=== PATIENT | male | born 1965 | race Caucasian/White ===

== ENCOUNTER 2016-02-29 09:26 | Emergency (ER) | payer BC ==
[~2016-02-29] VITALS: Ht 175.3 cm; Wt 86.2 kg
[~2016-02-29 09:26] MED LIST: IBU100LQ GT; METH-171 PO; NOR10T PO
[2016-02-29] MEDS ORDERED: HYDROmorphone HCL 2 MG/ML VL IM ONE (11:30)
[2016-02-29] MEDS ORDERED: METHOCARBAMOL 500 MG TAB PO ONE (11:30)
[2016-02-29] MEDS ORDERED: ONDANSETRON HCL 4 MG/2 ML VIAL IM ONE (11:30)
[2016-02-29 12:25] VITALS: BP 128/82
== END 2016-02-29 12:35 | disposition home or self-care (01) ==
LOC: ER 09:27
DX: M54.5 Low back pain (principal); M54.2 Cervicalgia; G89.29 Other chronic pain; Z88.0 Allergy status to penicillin
CPT/HCPCS: 96372; 99284; J1170; J2405

== ENCOUNTER → 2017-04-19 | Outpatient (CLI) | payer BC ==
[~2017-04-19] MED LIST changes: +CELE100C82 PO; +FLUT1SPR5; -IBU100LQ GT; +IBU600T PO; +IBUP100S11 GT; -METH-171 PO; +METH-532 PO; +RANO1000 PO
[2017-04-19 08:45] VITALS: BP 143/83
[2017-04-19 09:04] VITALS: BP 136/79
[2017-04-19 12:19] LABS: INR 0.93 (0.9-1.15); Partial Thromboplastin Time 26.6 sec (22.64-33.71); Prothrombin Time 10.1 sec (9.37-12.3)
[2017-04-19 12:24] LABS: Basophils # (auto) 0 uL; Basophils % (auto) 0.7 % (0.0-2.0); Eosinophils # (auto) 0.2 uL; Eosinophils % (auto) 2.8 % (0.0-7.0); Hematocrit 48.5 % (41.0-53.0); Hemoglobin 16.4 g/dL (13.5-17.5); Lymphocytes # (auto) 2.3 uL; Lymphocytes % (auto) 33.4 % (10.0-50.0); Mean Corpuscular Hgb Conc. 33.8 g/dL (32.0-36.0); Mean Corpuscular Volume 94.9 fL (80.0-100.0); Monocytes # (auto) 0.5 uL; Monocytes % (auto) 6.9 % (0.0-12.0); Neutrophils # (auto) 3.9 uL; Neutrophils % (auto) 56.2 % (37.0-80.0); Nucleated Red Blood Cells % 0.5 %; Platelet Count (auto) 282 10^3/uL (140-450); Red Blood Cells 5.11 10^6/uL (4.5-5.90); Red Cell Distribution Width 12.8 % (11.8-14.3)
[2017-04-19 12:29] LABS: BUN/Creatinine Ratio 23.9; Calcium 9.1 mg/dL (8.5-10.1); Potassium 4.1 mmol/L (3.5-5.1)
== END | disposition home or self-care (01) ==
LOC: Rad HDHVI 08:31
PROVIDERS: ATTEND Internal Medicine Cardiovascular Disease
DX: Z01.818 Encounter for other preprocedural examination (principal); I10 Essential (primary) hypertension; D64.9 Anemia, unspecified; R79.1 Abnormal coagulation profile
CPT/HCPCS: 36415; 71046; 80048; 85025; 85610; 85730; 93005; G0463

== ENCOUNTER → 2017-04-21 | Day surgery (SDC) | payer BC ==
[~2017-04-21] VITALS: Ht 175.3 cm; Wt 86.0 kg
[~2017-04-21] MED LIST changes: +ANGIOMAX 250 MG VIAL IV ONE; +IOHEXOL 350 MG/ML 100ML IJ ONE; +LIDOCAINE 2%HCL (LOCAL ANESTH.) INJ 20ML MDV ONE; +MIDAZOLAM HCL 1MG/1ML-2 ML VIAL ONE; +SODIUM CHL 0.9% 50 ML ONE; +fentaNYL CITRATE 100 MCG/2 ML VL ONE
== END | disposition home or self-care (01) ==
LOC: CATH 10:08
PROVIDERS: ATTEND Internal Medicine Cardiovascular Disease
DX: R07.9 Chest pain, unspecified (principal); Z88.0 Allergy status to penicillin; E66.9 Obesity, unspecified; F10.99 Alcohol use, unspecified with unspecified alcohol-induced disorder; F17.210 Nicotine dependence, cigarettes, uncomplicated
CPT/HCPCS: 93458; C1760; C1894; J1644; J2250; J3010; J7030; Q9967; 99152; 99153

== ENCOUNTER → 2018-07-25 | Outpatient (CLI) | payer BC ==
[~2018-07-25] MED LIST changes: -ANGIOMAX 250 MG VIAL IV ONE; -IBUP100S11 GT; -IOHEXOL 350 MG/ML 100ML IJ ONE; -LIDOCAINE 2%HCL (LOCAL ANESTH.) INJ 20ML MDV ONE; -METH-532 PO; -MIDAZOLAM HCL 1MG/1ML-2 ML VIAL ONE; -SODIUM CHL 0.9% 50 ML ONE; -fentaNYL CITRATE 100 MCG/2 ML VL ONE
[2018-07-25 12:14] LABS: Albumin 4.3 g/dL (3.4-5.0); Calcium 9.3 mg/dL (8.5-10.1); Potassium 4.2 mmol/L (3.5-5.1)
[2018-07-25 12:15] LABS: Basophils # (auto) 0 uL; Basophils % (auto) 0.6 % (0.0-2.0); Eosinophils # (auto) 0.1 uL; Eosinophils % (auto) 0.9 % (0.0-7.0); Hematocrit 49.6 % (41.0-53.0); Lymphocytes # (auto) 1.7 uL; Lymphocytes % (auto) 25.2 % (10.0-50.0); Mean Corpuscular Hgb Conc. 34.2 g/dL (32.0-36.0); Mean Corpuscular Volume 93.7 fL (80.0-100.0); Monocytes # (auto) 0.6 uL; Neutrophils # (auto) 4.5 uL; Neutrophils % (auto) 65.3 % (37.0-80.0); Nucleated Red Blood Cells % 0.1 %; Platelet Count (auto) 280 10^3/uL (140-450); White Blood Cell 6.9 10^3/uL (4.4-10.8)
[2018-07-25 12:18] LABS: Urine Blood Negative /uL (Negative); Urine Specific Gravity 1.014 (1.001-1.035)
[2018-07-25 12:20] LABS: Bilirubin, Total 0.6 mg/dL (0.2-1.0); CRP High Sensitivity 0.4 mg/dL (< 0.3); Total Protein 7.9 g/dL (6.4-8.2)
[2018-07-25 12:26] LABS: Prostate Specific Antigen 1.47 ng/mL (0.0-4.0)
== END | disposition home or self-care (01) ==
LOC: LAB 08:11
PROVIDERS: ATTEND Internal Medicine Cardiovascular Disease
DX: Z00.00 Encounter for general adult medical examination without abnormal findings (principal); M32.10 Systemic lupus erythematosus, organ or system involvement unspecified; R70.0 Elevated erythrocyte sedimentation rate; R79.82 Elevated C-reactive protein (CRP); E03.9 Hypothyroidism, unspecified; E55.9 Vitamin D deficiency, unspecified; C61 Malignant neoplasm of prostate; E29.1 Testicular hypofunction; D51.9 Vitamin B12 deficiency anemia, unspecified; N39.0 Urinary tract infection, site not specified; Z79.899 Other long term (current) drug therapy
CPT/HCPCS: 36415; 80053; 80061; 81003; 82306; 82607; 83036; 84153; 84403; 84439; 84443; 85025; 85652; 86141; 86225; 86235

== ENCOUNTER → 2018-07-31 | Outpatient (CLI) | payer BC ==
[~2018-07-31] MED LIST changes: +IOHEXOL 350 MG/ML 100ML IJ ONE
[2018-07-31 09:58] VITALS: BP 158/85
[2018-07-31 10:19] VITALS: BP 158/83
--- NOTE | 2018-07-31 10:19 | NUR ---
CT CHEST WITH CONTRAST. IV insertion IV access obtained, via clean sterile technique by inserting 22 gauge catheter at after attempt(s)BY RUTHIE YBARRA. IV secured properly. No trauma to site. Patient tolerated procedure well. COMPLETED CT SCAN AND TOLERATED WELL. IV DCD POST CT AND SITE BENIGN. DISCHARGED TO SELF CARE IN NO DISTRESS OR DISCOMFORT.
== END | disposition home or self-care (01) ==
LOC: Rad HDHVI 08:29
PROVIDERS: ATTEND Internal Medicine Cardiovascular Disease
DX: J44.9 Chronic obstructive pulmonary disease, unspecified (principal); R94.4 Abnormal results of kidney function studies
CPT/HCPCS: 36415; 71260; 82565; G0463; Q9967

== ENCOUNTER → 2018-08-30 | Outpatient (CLI) | payer BC ==
[~2018-08-30] VITALS: Ht 175.3 cm; Wt 86.2 kg
[~2018-08-30] MED LIST changes: -IOHEXOL 350 MG/ML 100ML IJ ONE
== END | disposition home or self-care (01) ==
LOC: Rad HDHVI 07:56
PROVIDERS: ATTEND Internal Medicine Cardiovascular Disease
DX: J44.9 Chronic obstructive pulmonary disease, unspecified (principal); M32.9 Systemic lupus erythematosus, unspecified; R07.89 Other chest pain; R06.02 Shortness of breath; F17.200 Nicotine dependence, unspecified, uncomplicated
CPT/HCPCS: 78452; 93017; 93306; 96374; A9500

== ENCOUNTER 2020-04-15 12:31 | Inpatient (IN) | payer BC ==
[~2020-04-15] VITALS: Ht 175.3 cm; Wt 86.0 kg
[~2020-04-15 12:31] MED LIST changes: -IBU600T PO; +IBUP600T28 PO
[2020-04-15] MEDS ORDERED: MORPHINE SULFATE 4 MG/ML SYR/VIAL IV ONE (12:45)
[2020-04-15] MEDS ORDERED: ONDANSETRON HCL 4 MG/2 ML VIAL IV ONE (12:45)
[2020-04-15 13:30] LABS: Basophils # (auto) 0 10 ^3/uL (0-0.2); Basophils % (auto) 0.6 % (0.0-2.0); Eosinophils # (auto) 0.1 10 ^3/uL (0-0.8); Eosinophils % (auto) 1.3 % (0.0-7.0); Hematocrit 45.2 % (41.0-53.0); Hemoglobin 15.9 g/dL (13.5-17.5); Lymphocytes # (auto) 2.1 10 ^3/uL (0.4-5.4); Lymphocytes % (auto) 27.9 % (10.0-50.0); Mean Corpuscular Hemoglobin 32.9 pg (28.0-32.0); Mean Corpuscular Hgb Conc. 35.1 g/dL (32.0-36.0); Mean Corpuscular Volume 93.7 fL (80.0-100.0); Monocytes # (auto) 0.6 10 ^3/uL (0-1.3); Monocytes % (auto) 7.4 % (0.0-12.0); Neutrophils # (auto) 4.8 10 ^3/uL (1.6-8.6); Neutrophils % (auto) 62.8 % (37.0-80.0); Red Blood Cells 4.82 10^6/uL (4.5-5.90); Red Cell Distribution Width 12.7 % (11.8-14.3); White Blood Cell 7.6 10^3/uL (4.4-10.8)
[2020-04-15 13:46] LABS: INR 0.92 (0.9-1.15); Partial Thromboplastin Time 24.2 sec (23.0-31.2)
[2020-04-15 13:48] LABS: Anion Gap 4 (5-15); Blood Urea Nitrogen 18 mg/dL (7-18); Calcium 8.7 mg/dL (8.5-10.1); Carbon Dioxide 27 mmol/L (21-32); Chloride 108 mmol/L (98-107); Glucose 112 mg/dL (74-106); Magnesium 2.4 mg/dL (1.6-2.6); Potassium 4.2 mmol/L (3.5-5.1); Sodium 139 mmol/L (136-145)
[2020-04-15 13:52] LABS: Alanine Aminotransferase 36 U/L (16-61); Alkaline Phosphatase 55 U/L (45-117); Aspartate Aminotransferase 18 U/L (15-37); BUN/Creatinine Ratio 17.8; Bilirubin, Total 0.4 mg/dL (0.2-1.0); GFR African American 98 mL/min; GFR Non-African American 81 mL/min; Total Protein 7.6 g/dL (6.4-8.2)
[2020-04-15] MEDS ORDERED: NITROGLYCERIN 0.4 MG SL TAB SL PRN (16:00)
[2020-04-15] MEDS ORDERED: CLOPIDOGREL 300 MG TAB PO ONE (16:00)
[2020-04-15] MEDS ORDERED: CLOPIDOGREL 300 MG TAB ONE (16:03)
[2020-04-15] MEDS: SODIUM CHLORIDE 0.9% 1,000 ML IV SCH (16:14)
[2020-04-15] MEDS: HYDROcodone-ACET 7.5/325MG TAB PO PRN (17:48)
[2020-04-15] MEDS: MORPHINE SULFATE INJECTION 2 MG/ML SYRG IV PRN (19:36)
[2020-04-15 23:00] VITALS: BP_SYST 124; BP_SYST 125; BP_DIAS 74; BP_DIAS 75
[2020-04-16] MEDS: SODIUM CHLORIDE 0.9% 1,000 ML IV SCH (04:50)
[2020-04-16 05:35] VITALS: BP 123/74
[2020-04-16] MEDS: MORPHINE SULFATE INJECTION 2 MG/ML SYRG IV PRN (05:51)
[2020-04-16] MEDS: HYDROcodone-ACET 7.5/325MG TAB PO PRN ×2 (08:16→16:29)
[2020-04-16 09:05] VITALS: BP 128/77
[2020-04-16] MEDS ORDERED: CLOPIDOGREL BISULFATE 75 MG TAB PO SCH (10:00)
[2020-04-16] MEDS ORDERED: ANGIOMAX 250 MG VIAL IV ONE (12:45)
[2020-04-16] MEDS ORDERED: fentaNYL CITRATE 100 MCG/2 ML VL ONE ×2 (12:46→14:01)
[2020-04-16] MEDS ORDERED: MIDAZOLAM HCL 2MG/2ML 2ml VIAL (1mg/ml) ONE (12:46)
[2020-04-16] MEDS ORDERED: SODIUM CHL 0.9% 50 ML ONE (12:46)
[2020-04-16] MEDS ORDERED: LIDOCAINE 2%HCL (LOCAL ANESTH.) INJ 20ML MDV ONE (12:47)
[2020-04-16 13:00] VITALS: BP 144/84
[2020-04-16] MEDS ORDERED: IOHEXOL 350 MG/ML 100ML IJ ONE (14:11)
[2020-04-16] MEDS ORDERED: CLOPIDOGREL BISULFATE 75 MG TAB ONE (14:24)
[2020-04-16] MEDS ORDERED: ASPirin 81 mg TAB ONE (14:24)
[2020-04-16 17:09] VITALS: BP 128/85
[2020-04-16 17:16] VITALS: BP 128/85
[2020-04-17] MEDS ORDERED: CLOPIDOGREL BISULFATE 75 MG TAB PO SCH (10:00)
== END 2020-04-16 17:41 | disposition home or self-care (01) | DRG 247 ==
LOC: ER 12:31 → TELE 12:32 → TELE-WESTW 22:15
PROVIDERS: ADMIT Internal Medicine Cardiovascular Disease; ATTEND Internal Medicine Cardiovascular Disease
PROC: 027034Z Dilation of Coronary Artery, One Artery with Drug-eluting Intraluminal Device, Percutaneous Approach (ICD-10-PCS; principal; 2020-04-16)
PROC: B2111ZZ Fluoroscopy of Multiple Coronary Arteries using Low Osmolar Contrast (ICD-10-PCS; 2020-04-16)
PROC: B2151ZZ Fluoroscopy of Left Heart using Low Osmolar Contrast (ICD-10-PCS; 2020-04-16)
PROC: 4A023N7 Measurement of Cardiac Sampling and Pressure, Left Heart, Percutaneous Approach (ICD-10-PCS; 2020-04-16)
DX: I21.4 Non-ST elevation (NSTEMI) myocardial infarction (principal); I25.110 Atherosclerotic heart disease of native coronary artery with unstable angina pectoris; Z79.02 Long term (current) use of antithrombotics/antiplatelets; Z82.3 Family history of stroke; M47.896 Other spondylosis, lumbar region; F17.210 Nicotine dependence, cigarettes, uncomplicated; I10 Essential (primary) hypertension; Z20.822 Contact with and (suspected) exposure to COVID-19; Z88.0 Allergy status to penicillin; Z79.899 Other long term (current) drug therapy
CPT/HCPCS: 36415; 71045; 80053; 83735; 84484; 85025; 85610; 85730; 87426; 92928; 93005; 93458; 96361; 96374; 96375; 99152; 99153; C1874; G0378; J2250; J2405

== ENCOUNTER → 2020-05-15 | Outpatient (CLI) | payer BC ==
[~2020-05-15] VITALS: Ht 175.3 cm; Wt 86.2 kg
[~2020-05-15] MED LIST changes: +ADENOSINE 90 MG/30 ML INJ IV ONE
== END | disposition home or self-care (01) ==
LOC: Rad HDHVI 08:10
PROVIDERS: ATTEND Internal Medicine Cardiovascular Disease
DX: J44.9 Chronic obstructive pulmonary disease, unspecified (principal); I25.10 Atherosclerotic heart disease of native coronary artery without angina pectoris; R06.02 Shortness of breath; R07.89 Other chest pain; F17.210 Nicotine dependence, cigarettes, uncomplicated; Z82.49 Family history of ischemic heart disease and other diseases of the circulatory system; Z95.2 Presence of prosthetic heart valve
CPT/HCPCS: 78452; 93017; 96374; A9500; J0153

== ENCOUNTER → 2021-09-16 | Outpatient (CLI) | payer BC ==
[~2021-09-16] MED LIST changes: -ADENOSINE 90 MG/30 ML INJ IV ONE
== END | disposition home or self-care (01) ==
LOC: Rad HDHVI 12:59
PROVIDERS: ATTEND Internal Medicine Cardiovascular Disease
DX: Z01.818 Encounter for other preprocedural examination (principal); M47.814 Spondylosis without myelopathy or radiculopathy, thoracic region; I70.0 Atherosclerosis of aorta
CPT/HCPCS: 71046